=== PATIENT | female | born 1970 | race Caucasian/White ===

== ENCOUNTER 2016-11-02 21:14 | Emergency (ER) | payer BC ==
[~2016-11-02] VITALS: Ht 175.3 cm; Wt 68.0 kg
[2016-11-02 21:34] VITALS: BP 140/74; PULSE 87; RESP 16; TEMP 98.1; O2SAT 98
--- NOTE | 2016-11-02 22:03 | PD ---
HPI Chief Complaint: Chest Pain Time Seen by Provider: 21:52 Travel History International Travel<30 days: No Contact w/Intl Traveler<30days: No Traveled to known affect area: No History of Present Illness HPI 46-year-old female complains of chest pain. Patient states that she started having substernal chest pain since this morning. Patient states the pain is pressure pain substernally without radiation. Patient denies palpitation nausea diaphoresis. Patient complained of numbness tingling sensation to both arms. Patient denies any coughing congestion fever chills. Patient has history of CAD status post [place] in 2010. Patient also has history of panic attack. Patient also has history hyperlipidemia. Patient is a smoker. Patient has family history of heart disease. Patient states that she drinking alcohol daily. Last drink was earlier today. Patient was seen by her physician in [place] recently and was given prescription for potassium by mouth for hypokalemia. Patient states that she finished potassium pills 2 days ago. PFSH Past Medical History Cardiovascular Problems: Yes ([place] 2010) Social History Tobacco Use: No Allergies-Medications (Allergen,Severity, Reaction): Coded Allergies: No Known Allergies (Unverified , 11/02/16) Review of Systems General / Constitutional: No: Fever Eyes: No: Visual changes HENT: No: Headaches Cardiovascular: Positive: Chest Pain or Discomfort Respiratory: No: Shortness of Breath Gastrointestinal: No: Abdominal Pain Genitourinary: No: Dysuria Musculoskeletal: No: Pain Skin: No Rash Neurologic: No: Weakness Psychiatric: No: Depression Endocrine: No: Polydipsia Hematologic/Lymphatic: No: Easy Bruising Physical Exam Narrative GENERAL: Well-nourished, well-developed patient. SKIN: Focused skin assessment warm/dry. HEAD: Normocephalic. EYES: No scleral icterus. No injection or drainage. NECK: Supple, trachea midline. No JVD or lymphadenopathy. CARDIOVASCULAR: Regular rate and rhythm without murmurs, gallops, or rubs. RESPIRATORY: Breath sounds equal bilaterally. No accessory muscle use. GASTROINTESTINAL: Abdomen soft, non-tender, nondistended. MUSCULOSKELETAL: No cyanosis, or edema. BACK: Nontender without obvious deformity. No CVA tenderness. Neurologic exam normal. Data Data Last Documented VS Vital Signs Date Time Temp Pulse Resp B/P (MAP) Pulse Ox O2 Delivery O2 Flow Rate FiO2 11/03/16 00:03 80 16 127/80 (96) 98 11/02/16 23:00 98.4 Room Air 97 Orders Orders Electrocardiogram (11/02/16 21:57) Complete Blood Count With Diff (11/02/16 21:57) Comprehensive Metabolic Panel (11/02/16 21:57) Creatine Kinase (Cpk) (11/02/16 21:57) Troponin I (11/02/16 21:57) Prothrombin Time / Inr (Pt) (11/02/16 21:57) Act Partial Throm Time (Ptt) (11/02/16 21:57) Thyroid Stimulating Hormone (11/02/16 21:57) Chest, Single Ap (11/02/16 21:57) Iv Access Insert/Monitor (11/02/16 21:57) Ecg Monitoring (11/02/16 21:57) Oximetry (11/02/16 21:57) Alcohol (Ethanol) (11/02/16 21:57) Aspirin (Aspirin) (11/02/16 22:15) Labs Laboratory Tests Test 11/02/16 22:10 White Blood Count 9.5 TH/MM3 Red Blood Count 4.37 MIL/MM3 Hemoglobin 16.4 GM/DL Hematocrit 47.0 % Mean Corpuscular Volume 107.4 FL Mean Corpuscular Hemoglobin 37.5 PG Mean Corpuscular Hemoglobin Concent 34.9 % Red Cell Distribution Width 15.6 % Platelet Count 233 TH/MM3 Mean Platelet Volume 9.1 FL Neutrophils (%) (Auto) 62.8 % Lymphocytes (%) (Auto) 20.9 % Monocytes (%) (Auto) 12.5 % Eosinophils (%) (Auto) 3.4 % Basophils (%) (Auto) 0.4 % Neutrophils # (Auto) 6.0 TH/MM3 Lymphocytes # (Auto) 2.0 TH/MM3 Monocytes # (Auto) 1.2 TH/MM3 Eosinophils # (Auto) 0.3 TH/MM3 Basophils # (Auto) 0.0 TH/MM3 CBC Comment DIFF FINAL Differential Comment Prothrombin Time 10.2 SEC Prothromb Time International Ratio 0.9 RATIO Activated Partial Thromboplast Time 27.1 SEC Blood Urea Nitrogen 10 MG/DL Creatinine 0.98 MG/DL Random Glucose 100 MG/DL Total Protein 7.8 GM/DL Albumin 4.1 GM/DL Calcium Level 9.0 MG/DL Alkaline Phosphatase 66 U/L Aspartate Amino Transf (AST/SGOT) 39 U/L Alanine Aminotransferase (ALT/SGPT) 52 U/L Total Bilirubin 0.7 MG/DL Sodium Level 139 MEQ/L Potassium Level 3.8 MEQ/L Chloride Level 102 MEQ/L Carbon Dioxide Level 27.7 MEQ/L Anion Gap 9 MEQ/L Estimat Glomerular Filtration Rate 61 ML/MIN Total Creatine Kinase 187 U/L Troponin I LESS THAN 0.02 NG/ML Thyroid Stimulating Hormone 3rd Gen 5.200 uIU/ML Ethyl Alcohol Level LESS THAN 3 MG/DL MDM Medical Decision Making Medical Screen Exam Complete: Yes Emergency Medical Condition: Yes Interpretation(s) Last Impressions Chest X-Ray 11/02/162156 Signed Impressions: Service Date/Time: Wednesday, November 02, 2016 21:53 - CONCLUSION: No evidence of acute cardiopulmonary disease. Diaz Lopez MD 23:52 PM. CBC WBC 9.5. Hemoglobin 16.4 hematocrit 47.0. MCV 107.4. Cardiac enzymes are normal. TSH 5.2. Alcohol less than 3. Differential Diagnosis Differential diagnosis including angina, [place], PE, pneumothorax, anxiety. Narrative Course 46-year-old female with chest pain. History of CAD status post [place]. History of EtOH abuse. History of anxiety. Aspirin 325 mg by mouth given. Patient was advised to be admitted to the chest pain center. Patient refuses admission. Patient wants to go home. Diagnosis Primary Impression: Chest pain Qualified Codes: R07.9 - Chest pain, unspecified Additional Impression: History of ETOH abuse Patient Instructions: General Instructions Additional Instructions: Advised aspirin daily. Advised patient alcohol detox center. Follow-up with personal physician. Med/Other Pt SpecificInfo: No Change to Meds Disposition: 01 DISCHARGE HOME Condition: Stable Lucho Sanders MD Nov 02, 2016 22:03
--- NOTE | 2016-11-02 22:14 | RADRPT ---
EXAM DATE/TIME: 11/02/2016 21:53 [facility] COMPARISON: No previous studies available for comparison. INDICATIONS : Chest pain MEDICAL HISTORY : Cardiovascular disease. SURGICAL HISTORY : None. ENCOUNTER: Initial ACUITY: 1 day PAIN SCORE: 4/10 LOCATION: chest FINDINGS: A single view of the chest demonstrates the lungs to be symmetrically aerated without evidence of mas s, infiltrate or effusion. The cardiomediastinal contours are unremarkable. Osseous structures are intact. CONCLUSION: No evidence of acute cardiopulmonary disease. Diaz Lopez MD on November 02, 2016 at 22:12 Board Certified Radiologist. This report was verified electronically.
[2016-11-02] MEDS ORDERED: ASPIRIN 325 MG TAB PO ONE (22:15)
[2016-11-02 22:44] LABS: BASOPHIL % 0.4 % (0.0-2.0); EOSINOPHIL # 0.3 TH/MM3 (0-0.4); EOSINOPHIL % 3.4 % (0.0-4.0); HEMO FLAGS DIFF FINAL; LYMPH % 20.9 % (9.0-44.0); MEAN CELL VOLUME 107.4 FL (80.0-100.0); MEAN CORPUSCULAR HEMOGLOBIN 37.5 PG (27.0-34.0); MEAN CORPUSCULAR HGB CONC 34.9 % (32.0-36.0); MONO % 12.5 % (0.0-8.0); NEUT % 62.8 % (16.0-70.0); PLATELET COUNT 233 TH/MM3 (150-450); RED BLOOD COUNT 4.37 MIL/MM3 (4.00-5.30); RED CELL DISTRIBUTION WIDTH 15.6 % (11.6-17.2); WHITE BLOOD COUNT 9.5 TH/MM3 (4.0-11.0)
[2016-11-02 23:00] VITALS: BP 125/78; PULSE 85; RESP 16; TEMP 98.4
[2016-11-02 23:07] LABS: ALKALINE PHOSPHATASE 66 U/L (45-117); CREATINE KINASE 187 U/L (26-192); TOTAL BILIRUBIN ADULT 0.7 MG/DL (0.2-1.0)
[2016-11-02 23:10] LABS: ALT (GPT) 52 U/L (10-53); ANION GAP 9 MEQ/L (5-15); AST (GOT) 39 U/L (15-37); BICARBONATE 27.7 MEQ/L (21.0-32.0); BLOOD UREA NITROGEN 10 MG/DL (7-18); CHLORIDE 102 MEQ/L (98-107); GLOMERULAR FILTRATION RATE 61 ML/MIN (>89); POTASSIUM 3.8 MEQ/L (3.5-5.1); SODIUM (NA) 139 MEQ/L (136-145)
[2016-11-02 23:11] LABS: ALCOHOL LESS THAN 3 MG/DL (0-5)
[2016-11-02 23:12] LABS: APTT (PATIENT) 27.1 SEC (24.3-30.1); INTERNATIONAL NORMALIZED RATIO 0.9 RATIO; PROTHROMBIN TIME - PATIENT 10.2 SEC (9.8-11.6)
[2016-11-03 00:03] VITALS: BP 127/80
--- NOTE | 2016-11-03 14:22 | EKG ---
Date Performed: 11/02/2016 Time Performed: 22:18:01 PTAGE: 46 years EKG: Sinus rhythm NORMAL ECG NO PREVIOUS TRACING DOCTOR: Adan Mays Interpretating Date/Time 11/03/2016 14:21:04
== END 2016-11-03 00:42 | disposition home or self-care (01) ==
LOC: NEPD 21:14
DX: R07.9 Chest pain, unspecified (principal); I25.2 Old myocardial infarction; Z79.899 Other long term (current) drug therapy
CPT/HCPCS: 71010; 80053; 80307; 82550; 84443; 84484; 85025; 85610; 85730; 93005; 99285